=== PATIENT | female | born 1990 | race Caucasian/White ===

== ENCOUNTER 2017-01-19 18:19 | Emergency (ER) | payer OTHER ==
[~2017-01-19] VITALS: Ht 157.5 cm; Wt 108.2 kg
[2017-01-19 20:31] VITALS: BP 132/86
[2017-01-19] MEDS ORDERED: ACETAMINOPHEN 500 MG TABLET PO ONE (21:00)
== END 2017-01-19 21:06 | disposition home or self-care (01) ==
LOC: EMS 18:22
DX: H60.93 Unspecified otitis externa, bilateral (principal)
CPT/HCPCS: 99283